=== PATIENT | female | born 1990 | race Caucasian/White ===

== ENCOUNTER → 2023-12-02 16:21 | Outpatient (REF) | payer OTHER, SELFPAY | LOC: RAD 16:21 | PROVIDERS: ATTENDING PHYSICIAN Family Medicine | DX: M79.604 Pain in right leg (principal); M79.605 Pain in left leg | CPT/HCPCS: 93970 ==

== ENCOUNTER → 2024-01-08 09:10 | Outpatient (REF) | payer OTHER, SELFPAY | LOC: RAD 09:10 | PROVIDERS: ATTENDING PHYSICIAN Obstetrics & Gynecology; FAMILY PHYSICIAN Family Medicine | DX: Z36.87 Encounter for antenatal screening for uncertain dates (principal); O26.841 Uterine size-date discrepancy, first trimester | CPT/HCPCS: 76801 ==

== ENCOUNTER → 2024-10-22 13:00 | Outpatient (REF) | payer OTHER, SELFPAY | LOC: EMG 13:00 | PROVIDERS: ATTENDING PHYSICIAN Orthopaedic Surgery; FAMILY PHYSICIAN Family Medicine | DX: R20.0 Anesthesia of skin (principal) | CPT/HCPCS: 95886; 95911 ==

== ENCOUNTER → 2024-11-21 11:28 | Outpatient (REF) | payer OTHER, SELFPAY | LOC: MRI 3T 11:28 | PROVIDERS: ATTENDING PHYSICIAN Orthopaedic Surgery | DX: S46.212A Strain of muscle, fascia and tendon of other parts of biceps, left arm, initial encounter (principal) | CPT/HCPCS: 73221 ==